=== PATIENT | male | born 1970 ===

== ENCOUNTER 2020-08-10 03:21 | Emergency (ER) ==
[2020-08-10] MEDS ORDERED: HYDROcodone/Acetaminophen 5/325 mg Tablet ONE (04:42)
--- NOTE | 2020-08-10 07:59 | RAD ---
RIGHT RIB SERIES WITH A PA VIEW OF THE CHEST INDICATION: Cough with chest pain COMPARISON: None. FINDINGS: Chest radiograph: The lungs are clear. Heart size is normal. No pleural effusion or pneumothorax is d emonstrated. Right Ribs: No displaced right-sided rib fracture is demonstrated. IMPRESSION: No displaced right-sided rib fracture
== END 2020-08-10 04:45 | disposition home or self-care (01) ==
LOC: ERS 03:21
DX: R07.89 Other chest pain (principal); R09.1 Pleurisy; I10 Essential (primary) hypertension; F17.210 Nicotine dependence, cigarettes, uncomplicated; Z79.899 Other long term (current) drug therapy